=== PATIENT | female | born 1995 | race Caucasian/White ===

== ENCOUNTER 2016-02-29 19:06 | Emergency (ER) | payer SELFPAY ==
[~2016-02-29] VITALS: Ht 167.6 cm; Wt 63.5 kg
[~2016-02-29 19:06] MED LIST: 'zithromax250 MG PO; AMOXICILLI400 MG/51 PO; AMOXICILLIN500 MG PO; AMOXIL250 MG/5 M PO; AUGMENTIN ES-6100 ML PO; BACTRIM DS 8001 TA1 PO; CIPRODEX 0.3%-7.5 ML OT; CLARITIN5 MG/5 ML PO; HYDROCODONE BIT1 T11 PO; KEFLEX500 M1 PO; MOTRIN400 MG PO; MOTRIN800 MG PO; NAPROSYN500 MG PO; PRENATAL1 TA7 PO
[2016-02-29] MEDS ORDERED: AMOXICILLIN500 M2 PO (19:45)
== END 2016-02-29 19:38 | disposition home or self-care (01) ==
LOC: ED 19:06
DX: J02.0 Streptococcal pharyngitis (principal); F17.200 Nicotine dependence, unspecified, uncomplicated

== ENCOUNTER 2016-06-15 18:54 | Emergency (ER) | payer OTHER ==
[~2016-06-15] VITALS: Ht 170.1 cm; Wt 63.5 kg
[~2016-06-15 18:54] MED LIST changes: +AMOXICILLIN500 M2 PO
[2016-06-15] MEDS ORDERED: COLACE100 MG PO (20:03)
[2016-06-15] MEDS ORDERED: PRENATAL VITAM1 EAC4 PO (20:03)
[2016-06-15] MEDS ORDERED: DICLEGIS DR 101 EACH PO (20:07)
== END 2016-06-15 20:15 | disposition home or self-care (01) ==
LOC: ED 18:54
DX: K59.00 Constipation, unspecified (principal); Z32.01 Encounter for pregnancy test, result positive; F17.200 Nicotine dependence, unspecified, uncomplicated

== ENCOUNTER 2016-06-27 12:09 | Emergency (ER) | payer OTHER ==
[~2016-06-27] VITALS: Ht 167.6 cm; Wt 65.8 kg
[~2016-06-27 12:09] MED LIST changes: +COLACE100 MG PO; +DICLEGIS DR 101 EACH PO; +PRENATAL VITAM1 EAC4 PO
== END 2016-06-27 14:32 | disposition home or self-care (01) ==
LOC: ED 12:09
DX: O98.311 Other infections with a predominantly sexual mode of transmission complicating pregnancy, first trimester (principal); Z3A.10 10 weeks gestation of pregnancy

== ENCOUNTER 2016-11-05 18:52 | Emergency (ER) | payer OTHER ==
[~2016-11-05] VITALS: Ht 167.6 cm; Wt 63.5 kg
[2016-11-05 19:29] LABS: BILIRUBIN NEGATIVE (NEGATIVE); BLOOD NEGATIVE (NEGATIVE); CLARITY SL CLOUDY (CLEAR); COLOR YELLOW (YELLOW); GLUCOSE NEGATIVE (NEGATIVE); KETONE NEGATIVE (NEGATIVE); LEUKO ESTERASE 1+ (NEGATIVE); NITRITE NEGATIVE (NEGATIVE); SPECIFIC GRAVITY 1.025 (1.005-1.030)
[2016-11-05 19:38] LABS: BACTERIA 1+; EPITHELIAL CELLS TNTC; MUCOUS 1+; WBC 16-20 wbc/hpf (0-5)
[2016-11-05] MEDS ORDERED: AMINOPHYLLIN200 MG PO (20:19)
[2016-11-05] MEDS ORDERED: MEDROL DOSEPAK4 MG PO (20:19)
== END 2016-11-05 20:28 | disposition home or self-care (01) ==
LOC: ED 18:52
PROVIDERS: Physician Assistant
DX: N30.01 Acute cystitis with hematuria (principal); J06.9 Acute upper respiratory infection, unspecified; F17.200 Nicotine dependence, unspecified, uncomplicated

== ENCOUNTER 2017-02-20 16:15 | Emergency (ER) | payer OTHER ==
[~2017-02-20] VITALS: Ht 170.1 cm; Wt 59.0 kg
[~2017-02-20 16:15] MED LIST changes: +AMINOPHYLLIN200 MG PO; +MEDROL DOSEPAK4 MG PO
[2017-02-20 17:03] LABS: BILIRUBIN NEGATIVE (NEGATIVE); BLOOD 3+ (NEGATIVE); CLARITY SL CLOUDY (CLEAR); COLOR YELLOW (YELLOW); GLUCOSE NEGATIVE (NEGATIVE); KETONE NEGATIVE (NEGATIVE); LEUKO ESTERASE 1+ (NEGATIVE); NITRITE NEGATIVE (NEGATIVE); PH 5.5 (5.0-9.0); SPECIFIC GRAVITY 1.025 (1.005-1.030)
[2017-02-20 17:10] LABS: BACTERIA 3+; EPITHELIAL CELLS 15-20
== END 2017-02-20 18:58 | disposition home or self-care (01) ==
LOC: ED 16:15
PROVIDERS: Emergency Medicine
DX: N89.8 Other specified noninflammatory disorders of vagina (principal); F17.200 Nicotine dependence, unspecified, uncomplicated; Z79.899 Other long term (current) drug therapy; Z98.890 Other specified postprocedural states

== ENCOUNTER 2017-04-01 08:58 | Emergency (ER) | payer OTHER ==
[~2017-04-01] VITALS: Ht 167.6 cm; Wt 59.0 kg
[2017-04-01] MEDS ORDERED: ZYRTEC10 MG PO (10:06)
[2017-04-01] MEDS ORDERED: AMOXICILLIN500 M2 PO (10:06)
== END 2017-04-01 10:31 | disposition home or self-care (01) ==
LOC: ED 08:58
DX: J01.90 Acute sinusitis, unspecified (principal); J02.9 Acute pharyngitis, unspecified; F17.200 Nicotine dependence, unspecified, uncomplicated

== ENCOUNTER 2017-05-19 22:00 | Emergency (ER) | payer OTHER ==
[~2017-05-19] VITALS: Ht 166.3 cm; Wt 59.0 kg
[~2017-05-19 22:00] MED LIST changes: +ZYRTEC10 MG PO
[2017-05-19 22:18] LABS: BILIRUBIN NEGATIVE (NEGATIVE); BLOOD NEGATIVE (NEGATIVE); CLARITY SL CLOUDY (CLEAR); COLOR YELLOW (YELLOW); GLUCOSE NEGATIVE (NEGATIVE); KETONE NEGATIVE (NEGATIVE); LEUKO ESTERASE TRACE (NEGATIVE); NITRITE NEGATIVE (NEGATIVE); SPECIFIC GRAVITY 1.015 (1.005-1.030)
[2017-05-19 22:25] LABS: BACTERIA 3+
[2017-05-19 22:29] LABS: BASO % 0.4 % (0.0-1.0); EOS # 0.1 10*3/uL (0.0-0.4); EOS % 1.2 % (1.0-4.0); HEMATOCRIT 45.3 % (37.0-47.0); HEMOGLOBIN 15.2 g/dl (12.0-16.0); LYMPH # 3.6 10*3/uL (1.3-4.4); LYMPH % 49.7 % (27.0-41.0); MEAN CELL VOLUME 91.7 fl (81.0-99.0); MEAN CORPUSCULAR HGB 30.8 pg (27.0-31.0); MEAN CORPUSCULAR HGB CONC 33.6 g/dl (33.0-37.0); MEAN PLATELET VOLUME 10.5 fl (9.6-12.3); MONO # 0.4 10*3/uL (0.1-1.0); MONO % 5.8 % (3.0-9.0); NEUT # 3.1 10*3/uL (2.3-7.9); NEUT % 42.8 % (47.0-73.0); PLATELET COUNT AUTOMATED 287 10*3/uL (130-400); RED BLOOD COUNT 4.94 10*6/uL (4.10-5.10); RED CELL DISTRI WIDTH 12.5 % (0-14.5); WHITE BLOOD COUNT 7.2 10*3/uL (4.8-10.8)
[2017-05-19 22:45] LABS: ALBUMIN 3.7 gm/dl (3.1-4.5); ALKALINE PHOSPHATASE 84 U/L (45-117); BUN 11 mg/dl (7-24); CHLORIDE 107 mmol/L (98-107); CREATININE 0.68 mg/dL (0.55-1.02); POTASSIUM 3.9 mmol/L (3.5-5.1); SGOT/AST 11 IU/L (3-35); SGPT/ALT 19 U/L (12-78); SODIUM 140 mmol/L (136-145); TOTAL PROTEIN 6.9 gm/dL (6.4-8.2)
[2017-05-19 22:48] LABS: B-hCG (QUALITATIVE) NEGATIVE (NEGATIVE)
[2017-05-19] MEDS ORDERED: KETOROLAC10 MG PO (23:26)
[2017-05-19] MEDS ORDERED: KEFLEX500 M1 PO (23:26)
== END 2017-05-19 23:48 | disposition home or self-care (01) ==
LOC: ED 22:00
PROVIDERS: Emergency Medicine Emergency Medical Services
DX: N39.0 Urinary tract infection, site not specified (principal)

== ENCOUNTER → 2017-05-23 | Outpatient (CLI) | payer OTHER ==
[~2017-05-23] MED LIST changes: +KETOROLAC10 MG PO
== END | disposition home or self-care (01) ==
LOC: US 10:48
DX: R10.2 Pelvic and perineal pain (principal)

== ENCOUNTER 2017-09-01 18:21 | Emergency (ER) | payer OTHER ==
[~2017-09-01] VITALS: Wt 57.6 kg
[2017-09-01 18:32] LABS: BILIRUBIN NEGATIVE (NEGATIVE); BLOOD NEGATIVE (NEGATIVE); CLARITY CLEAR (CLEAR); COLOR YELLOW (YELLOW); GLUCOSE NEGATIVE (NEGATIVE); KETONE NEGATIVE (NEGATIVE); LEUKO ESTERASE NEGATIVE (NEGATIVE); NITRITE NEGATIVE (NEGATIVE); SPECIFIC GRAVITY 1.025 (1.005-1.030)
[2017-09-01 18:42] LABS: MUCOUS TRACE
[2017-09-01 18:55] LABS: BASO % 0.5 % (0.0-1.0); EOS # 0.1 10*3/uL (0.0-0.4); EOS % 1.7 % (1.0-4.0); HEMATOCRIT 42.7 % (37.0-47.0); HEMOGLOBIN 14.4 g/dl (12.0-16.0); MEAN CELL VOLUME 91.6 fl (81.0-99.0); MEAN CORPUSCULAR HGB 30.9 pg (27.0-31.0); MEAN CORPUSCULAR HGB CONC 33.7 g/dl (33.0-37.0); MONO # 0.5 10*3/uL (0.1-1.0); MONO % 5.9 % (3.0-9.0); NEUT # 4.7 10*3/uL (2.3-7.9); NEUT % 55.8 % (47.0-73.0); PLATELET COUNT AUTOMATED 264 10*3/uL (130-400); RED BLOOD COUNT 4.66 10*6/uL (4.10-5.10); RED CELL DISTRI WIDTH 12.2 % (0-14.5); WHITE BLOOD COUNT 8.4 10*3/uL (4.8-10.8)
[2017-09-01 19:10] LABS: ALBUMIN 3.9 gm/dl (3.1-4.5); ALKALINE PHOSPHATASE 83 U/L (45-117); BUN 14 mg/dl (7-24); CHLORIDE 105 mmol/L (98-107); CREATININE 0.73 mg/dL (0.55-1.02); POTASSIUM 3.6 mmol/L (3.5-5.1); SGOT/AST 7 IU/L (3-35); SGPT/ALT 14 U/L (12-78); SODIUM 140 mmol/L (136-145)
[2017-09-01] MEDS ORDERED: DOXYCYCLINE100 M3 PO (19:30)
[2017-09-28] MEDS ORDERED: BIRTH CONTROL PO (14:41)
== END 2017-09-01 20:15 | disposition home or self-care (01) ==
LOC: ED 18:21
PROVIDERS: Emergency Medicine; Registered Nurse
DX: N73.0 Acute parametritis and pelvic cellulitis (principal); Z79.899 Other long term (current) drug therapy

== ENCOUNTER 2017-09-24 12:42 | Emergency (ER) | payer OTHER ==
[~2017-09-24] VITALS: Ht 167.6 cm; Wt 59.0 kg
[~2017-09-24 12:42] MED LIST changes: +DOXYCYCLINE100 M3 PO
[2017-09-24 13:10] LABS: BASO % 0.5 % (0.0-1.0); EOS # 0.1 10*3/uL (0.0-0.4); EOS % 0.9 % (1.0-4.0); HEMATOCRIT 38.7 % (37.0-47.0); HEMOGLOBIN 13.1 g/dl (12.0-16.0); LYMPH # 2.9 10*3/uL (1.3-4.4); LYMPH % 35.5 % (27.0-41.0); MEAN CELL VOLUME 92.4 fl (81.0-99.0); MEAN CORPUSCULAR HGB 31.3 pg (27.0-31.0); MEAN CORPUSCULAR HGB CONC 33.9 g/dl (33.0-37.0); MEAN PLATELET VOLUME 10.6 fl (9.6-12.3); MONO # 0.5 10*3/uL (0.1-1.0); MONO % 5.5 % (3.0-9.0); NEUT # 4.7 10*3/uL (2.3-7.9); NEUT % 57.4 % (47.0-73.0); PLATELET COUNT AUTOMATED 241 10*3/uL (130-400); RED BLOOD COUNT 4.19 10*6/uL (4.10-5.10); RED CELL DISTRI WIDTH 11.8 % (0-14.5); WHITE BLOOD COUNT 8.2 10*3/uL (4.8-10.8)
[2017-09-24 13:18] LABS: ACT PARTIAL THROMBO TIME 23.3 SECONDS (20.8-31.5)
[2017-09-24 13:25] LABS: ALBUMIN 3.7 gm/dl (3.1-4.5); ALKALINE PHOSPHATASE 75 U/L (45-117); BUN 14 mg/dl (7-24); CHLORIDE 108 mmol/L (98-107); CREATININE 0.71 mg/dL (0.55-1.02); POTASSIUM 3.8 mmol/L (3.5-5.1); SGOT/AST 6 IU/L (3-35); SGPT/ALT 12 U/L (12-78); SODIUM 140 mmol/L (136-145); TOTAL PROTEIN 6.6 gm/dL (6.4-8.2)
[2017-09-24 13:28] LABS: B-hCG (QUALITATIVE) NEGATIVE (NEGATIVE)
[2017-09-28] MEDS ORDERED: BIRTH CONTROL PO (14:41)
== END 2017-09-24 14:44 | disposition home or self-care (01) ==
LOC: ED 12:42
PROVIDERS: Emergency Medicine
DX: R51 Headache (principal); R11.2 Nausea with vomiting, unspecified; R10.2 Pelvic and perineal pain; F17.200 Nicotine dependence, unspecified, uncomplicated

== ENCOUNTER 2017-10-28 15:56 | Emergency (ER) | payer OTHER ==
[~2017-10-28] VITALS: Wt 59.0 kg
[~2017-10-28 15:56] MED LIST changes: +BIRTH CONTROL PO
[2017-10-28] MEDS ORDERED: AUGMENTIN 875875 MG PO (18:44)
[2017-10-28] MEDS ORDERED: PREDNISONE20 M1 PO (18:44)
== END 2017-10-28 18:50 | disposition home or self-care (01) ==
LOC: ED 15:56
DX: J02.0 Streptococcal pharyngitis (principal)

== ENCOUNTER 2017-12-12 21:41 | Emergency (ER) | payer OTHER ==
[~2017-12-12] VITALS: Ht 167.6 cm; Wt 59.0 kg
[~2017-12-12 21:41] MED LIST changes: +AUGMENTIN 875875 MG PO; +PREDNISONE20 M1 PO
[2017-12-12] MEDS ORDERED: PRENATAL TABLE1 EAC2 PO (22:25)
[2017-12-12] MEDS ORDERED: BENADRYL ALLERG25 M5 PO (22:25)
== END 2017-12-12 22:39 | disposition home or self-care (01) ==
LOC: ED 21:41
DX: J06.9 Acute upper respiratory infection, unspecified (principal); M54.5 Low back pain; Z33.1 Pregnant state, incidental

== ENCOUNTER 2017-12-17 09:19 | Emergency (ER) | payer OTHER ==
[~2017-12-17] VITALS: Ht 165.1 cm; Wt 58.1 kg
[~2017-12-17 09:19] MED LIST changes: +BENADRYL ALLERG25 M5 PO; +PRENATAL TABLE1 EAC2 PO
[2017-12-17 09:39] LABS: BASO % 0.6 % (0.0-1.0); EOS # 0.1 10*3/uL (0.0-0.4); EOS % 1.7 % (1.0-4.0); HEMATOCRIT 40.8 % (37.0-47.0); LYMPH # 1.9 10*3/uL (1.3-4.4); LYMPH % 28.5 % (27.0-41.0); MEAN CELL VOLUME 91.9 fl (81.0-99.0); MEAN CORPUSCULAR HGB 31.5 pg (27.0-31.0); MEAN CORPUSCULAR HGB CONC 34.3 g/dl (33.0-37.0); MONO # 0.5 10*3/uL (0.1-1.0); MONO % 7.5 % (3.0-9.0); NEUT % 61.4 % (47.0-73.0); PLATELET COUNT AUTOMATED 266 10*3/uL (130-400); RED BLOOD COUNT 4.44 10*6/uL (4.10-5.10); WHITE BLOOD COUNT 6.5 10*3/uL (4.8-10.8)
[2017-12-17 09:53] LABS: ALBUMIN 3.5 gm/dl (3.1-4.5); ALKALINE PHOSPHATASE 80 U/L (45-117); BUN 9 mg/dl (7-24); CHLORIDE 108 mmol/L (98-107); CREATININE 0.64 mg/dL (0.55-1.02); LIPASE 122 U/L (73-393); POTASSIUM 3.7 mmol/L (3.5-5.1); SGOT/AST 6 IU/L (3-35); SGPT/ALT 12 U/L (12-78); SODIUM 139 mmol/L (136-145); TOTAL PROTEIN 7.1 gm/dL (6.4-8.2)
== END 2017-12-17 10:24 | disposition left against medical advice (07) ==
LOC: ED 09:19
PROVIDERS: Nurse Practitioner Family
DX: O26.891 Other specified pregnancy related conditions, first trimester (principal); R10.32 Left lower quadrant pain; R11.0 Nausea

== ENCOUNTER 2017-12-23 19:56 | Emergency (ER) | payer OTHER ==
[~2017-12-23] VITALS: Ht 165.1 cm; Wt 59.0 kg
[2017-12-23 20:20] LABS: BILIRUBIN NEGATIVE (NEGATIVE); BLOOD NEGATIVE (NEGATIVE); CLARITY TURBID (CLEAR); COLOR YELLOW (YELLOW); GLUCOSE NEGATIVE (NEGATIVE); KETONE NEGATIVE (NEGATIVE); LEUKO ESTERASE 2+ (NEGATIVE); NITRITE NEGATIVE (NEGATIVE); PH 7.5 (5.0-9.0); SPECIFIC GRAVITY 1.015 (1.005-1.030)
[2017-12-23 20:35] LABS: BASO # 0.1 10*3/uL (0.0-0.1); BASO % 0.4 % (0.0-1.0); EOS # 0.1 10*3/uL (0.0-0.4); EOS % 0.5 % (1.0-4.0); HEMOGLOBIN 14.7 g/dl (12.0-16.0); LYMPH # 2.9 10*3/uL (1.3-4.4); MEAN CELL VOLUME 92.3 fl (81.0-99.0); MEAN CORPUSCULAR HGB 31.5 pg (27.0-31.0); MEAN CORPUSCULAR HGB CONC 34.2 g/dl (33.0-37.0); MEAN PLATELET VOLUME 10.4 fl (9.6-12.3); MONO # 0.6 10*3/uL (0.1-1.0); NEUT # 8.3 10*3/uL (2.3-7.9); NEUT % 69.8 % (47.0-73.0); PLATELET COUNT AUTOMATED 310 10*3/uL (130-400); RED BLOOD COUNT 4.66 10*6/uL (4.10-5.10); RED CELL DISTRI WIDTH 11.9 % (0-14.5); WHITE BLOOD COUNT 11.9 10*3/uL (4.8-10.8)
[2017-12-23 20:47] LABS: EPITHELIAL CELLS TNTC
[2017-12-23 20:48] LABS: BACTERIA 1+; RBC 0-2 rbc/hpf (0-2)
[2017-12-23 20:51] LABS: ALBUMIN 3.9 gm/dl (3.1-4.5); ALKALINE PHOSPHATASE 83 U/L (45-117); BUN 12 mg/dl (7-24); CHLORIDE 106 mmol/L (98-107); CREATININE 0.65 mg/dL (0.55-1.02); POTASSIUM 3.8 mmol/L (3.5-5.1); SGOT/AST 12 IU/L (3-35); SGPT/ALT 14 U/L (12-78); SODIUM 139 mmol/L (136-145); TOTAL PROTEIN 7.8 gm/dL (6.4-8.2)
[2017-12-23] MEDS ORDERED: MACROBID100 M1 PO (21:31)
[2017-12-23] MEDS ORDERED: DICLEGIS DR 101 EACH PO (21:31)
== END 2017-12-23 22:01 ==
LOC: ED 19:56
PROVIDERS: Nurse Practitioner Family
DX: O23.41 Unspecified infection of urinary tract in pregnancy, first trimester (principal); O26.891 Other specified pregnancy related conditions, first trimester; R11.2 Nausea with vomiting, unspecified; Z3A.01 Less than 8 weeks gestation of pregnancy

== ENCOUNTER 2018-01-05 15:57 | Emergency (ER) | payer OTHER ==
[~2018-01-05] VITALS: Ht 167.6 cm; Wt 59.0 kg
[~2018-01-05 15:57] MED LIST changes: +MACROBID100 M1 PO
[2018-01-05 17:03] LABS: BILIRUBIN NEGATIVE (NEGATIVE); BLOOD NEGATIVE (NEGATIVE); CLARITY SL CLOUDY (CLEAR); COLOR YELLOW (YELLOW); GLUCOSE NEGATIVE (NEGATIVE); KETONE 3+ (NEGATIVE); LEUKO ESTERASE 1+ (NEGATIVE); NITRITE NEGATIVE (NEGATIVE); SPECIFIC GRAVITY >= 1.030 (1.005-1.030)
[2018-01-05 17:21] LABS: EPITHELIAL CELLS 20-25; MUCOUS 1+; WBC TNTC wbc/hpf (0-5)
== END 2018-01-05 17:45 | disposition home or self-care (01) ==
LOC: ED 15:57
PROVIDERS: Nurse Practitioner Family
DX: O26.891 Other specified pregnancy related conditions, first trimester (principal); O98.811 Other maternal infectious and parasitic diseases complicating pregnancy, first trimester; A59.9 Trichomoniasis, unspecified; E86.0 Dehydration; R11.2 Nausea with vomiting, unspecified; Z79.2 Long term (current) use of antibiotics; Z79.899 Other long term (current) drug therapy; Z3A.01 Less than 8 weeks gestation of pregnancy